=== PATIENT | male | born 1950 | race Caucasian/White ===

== ENCOUNTER → 2017-10-21 12:52 | Outpatient (CLI) | payer MEDICARE, SELFPAY ==
[2017-10-21 15:43] LABS: Prostate Specific Ag Screen 0.8 ng/mL (0.0-4.0)
== END ==
PROVIDERS: PCP Family Medicine; Visit Provider Urology
DX: Z12.5 Encounter for screening for malignant neoplasm of prostate (principal); N40.2 Nodular prostate without lower urinary tract symptoms
CPT/HCPCS: 36415; G0103

== ENCOUNTER → 2018-05-12 14:06 | Outpatient (CLI) | payer MEDICARE, SELFPAY ==
[2018-05-12 16:15] LABS: Prostate Specific Ag Screen 0.6 ng/mL (0.0-4.0)
== END ==
PROVIDERS: Visit Provider Urology
DX: Z12.5 Encounter for screening for malignant neoplasm of prostate (principal); N40.2 Nodular prostate without lower urinary tract symptoms
CPT/HCPCS: 36415; G0103

== ENCOUNTER → 2018-11-03 14:24 | Outpatient (CLI) | payer MEDICARE, SELFPAY ==
[2018-11-03 15:34] LABS: Prostate Specific Ag, Diagnost 0.59 ng/mL (0.0-4.0)
== END ==
PROVIDERS: Visit Provider Urology
DX: R97.20 Elevated prostate specific antigen [PSA] (principal)
CPT/HCPCS: 36415; 84153

== ENCOUNTER 2019-06-23 08:00 | Outpatient (RCR) | payer MEDICARE, SELFPAY ==
--- NOTE | 2019-05-11 12:09 | HMH.PTOPEV ---
PT Outpatient Evaluation Rehab PT Outpatient Evaluation Start: 05/11/19 11:33 Freq: Status: Active Protocol: Document 05/11/19 11:33 [email or web address] (Rec: 05/11/19 12:09 [email or web address] [id number]) Electronically Signed By Enrrique Hardy, PT 05/11/19 11:33 Outpatient Therapy Subjective History Subjective History Pt. is a 69 year old male who presents to outpatient PT for complaints of subacute L cervical/ shoulder pain of insidious onset 2 months ago. Pt. reports symptoms worsening with driving/lifting/sleeping/ cervical rotation and flexion to same side, L. Pt. denies having recent diagnostic imaging nor injections for current pathology. Pt. also denies numbness/tingling into LUE and HAs with current pathology. Current medications include Flexirol, Amlodopine, Lisinopril, Atorvastatin, Metformin, and Metoprolol. PMH includes 1 LUX(22 years ago), one balloon angioplasty, R wrist surgical reconstruction, L elbow surgical reconstruction, R ankle surgical reconstruction, HTN, type II diabetes, and hypercholesterolemia. Chief Complaint Pain,Stiff Symptom Type Ache,Sharp,Dull Symptoms Relieved By Rest/Positioning,Heat, Prescription Meds Symptoms Aggravated By Physical Activity,Twisting, Lifting Prior Functional Limitations None Current Functional Limitations Reaching,Lifting,Driving, Sleeping,Recreation Activity Symptom Description Constant but Variable Level of pain today (0-10) 2 Pain scale - at its best (0-10) 1 Pain scale - at its worst (0-10) 9 Cervical Eval Palpation Cervical Muscles L Cervical Paraspinal,L CT Junction,L Upper Trapezius Cervical/Thoracic Palpation Findings Spasm Posture Head/C-Spine Posture Sitting Position Flexed Head/C-Spine Posture Standing Position Flexed Flexibility Deficits Upper Trapezius Muscle Length (R) Severe Tightness,(L) Severe Tightness Levaetor Scapulae Muscle Length (R)
== END 2019-07-06 11:00 | disposition home or self-care (01) ==
LOC: PT 08:00
PROVIDERS: PCP Family Medicine; Visit Provider Family Medicine
DX: M54.2 Cervicalgia (principal); M62.838 Other muscle spasm
CPT/HCPCS: 97010; 97012; 97014; 97033; 97035; 97110; 97140; 97163; G0283

== ENCOUNTER → 2019-11-09 11:55 | Outpatient (CLI) | payer MEDICARE, SELFPAY ==
[2019-11-09 14:20] LABS: Prostate Specific Ag Screen 0.9 ng/mL (0.0-4.0)
== END ==
PROVIDERS: PCP Family Medicine; Visit Provider Urology
DX: Z12.5 Encounter for screening for malignant neoplasm of prostate (principal)
CPT/HCPCS: 36415; G0103

== ENCOUNTER → 2020-11-09 11:23 | Outpatient (CLI) | payer MEDICARE, SELFPAY ==
[2020-11-09 12:52] LABS: Prostate Specific Ag Screen 0.8 ng/ml (0.0-4.0)
== END ==
PROVIDERS: Visit Provider Urology
DX: Z12.5 Encounter for screening for malignant neoplasm of prostate (principal)
CPT/HCPCS: 36415; G0103

== ENCOUNTER → 2021-11-13 10:38 | Outpatient (CLI) | payer MEDICARE, SELFPAY ==
[2021-11-13 12:39] LABS: Prostate Specific Ag Screen 0.8 ng/ml (0.0-4.0)
== END ==
PROVIDERS: PCP Family Medicine; Visit Provider Urology
DX: Z12.5 Encounter for screening for malignant neoplasm of prostate (principal)
CPT/HCPCS: 36415; G0103

== ENCOUNTER 2022-10-22 06:25 | Day surgery (SDC) | payer MEDICARE, SELFPAY ==
[2022-10-17 09:30] VITALS: BMI 31.9
[2022-10-22] VITALS (8 sets, daily range): BP systolic 124–139; BP diastolic 59–69; PULSE 50–79; RESP 14–18; TEMP 36.6–36.7; O2SAT 92–98
[2022-10-22 11:08] LABS: POC Glucose,Bedside 230 (70-110)
== END 2022-10-22 08:27 | disposition home or self-care (01) ==
LOC: OR 06:30
PROVIDERS: PCP Family Medicine; Visit Provider Ophthalmology
DX: E11.36 Type 2 diabetes mellitus with diabetic cataract (principal); H25.9 Unspecified age-related cataract
CPT/HCPCS: 66982; 82962; V2632

== ENCOUNTER 2022-11-05 07:17 | Day surgery (SDC) | payer MEDICARE, SELFPAY ==
[2022-11-05] VITALS (9 sets, daily range): BP systolic 118–145; BP diastolic 61–68; PULSE 49–59; RESP 14–18; TEMP 36.2–36.7; O2SAT 91–96; BMI 31.9
[2022-11-05 07:48] LABS: POC Glucose,Bedside 220 (70-110)
== END 2022-11-05 09:04 | disposition home or self-care (01) ==
PROVIDERS: PCP Family Medicine; Visit Provider Ophthalmology
DX: H25.813 Combined forms of age-related cataract, bilateral (principal); E11.9 Type 2 diabetes mellitus without complications; Z79.899 Other long term (current) drug therapy
CPT/HCPCS: 66984; 82962; V2632

== ENCOUNTER 2024-04-16 09:25 | Outpatient (CLI) | payer MEDICARE, SELFPAY ==
--- NOTE | 2024-04-16 09:26 | FL_ITS ---
FINAL REPORT CLINICAL HISTORY: DYSPHAGIA FT: 1:10 78.18 MGY DAP 1087.64 FINDINGS: ESOPHAGRAM CLINICAL HISTORY: Dysphagia FINDINGS: There is no esophageal mucosal abnormality. There is a moderate-sized hiatal hernia. There is mild gastroesophageal reflux. A 13 mm barium tablet is briefly delayed at the hernia site but passes into the esophagus. IMPRESSION: Moderate-sized hiatal hernia with mild gastroesophageal reflux. FLUOROSCOPY TIME: 1 minute 10 second FLUORO DOSE: 78.1 a mGy Films reviewed and interpreted by Dr. Juarez Transcribed by POLINA Dooley. Reviewed, Interpreted and Dictated by Jose Juarez III, MD Transcribed by CRIS Dooley Authenticated and [facility]
[2024-04-16] MEDS: BARIUM SULFATE (E-Z-HD 340GM);135ML BOTTLE 135 ML PO (10:08)
[2024-04-16] MEDS: BARIUM SULFATE(LIQUID E-Z-PAQUE);355ML BOTTLE 355 ML PO (10:08)
[2024-04-16] MEDS: E-Z-GASII EFFERVESCENT GRANULES;1PK 1 EACH PO (10:08)
== END 2024-04-16 23:59 | disposition home or self-care (01) ==
LOC: RAD 09:26
PROVIDERS: PCP Family Medicine; Visit Provider Surgery
DX: R13.10 Dysphagia, unspecified (principal)
CPT/HCPCS: 74220

== ENCOUNTER 2024-04-27 06:18 | Day surgery (SDC) | payer MEDICARE, SELFPAY ==
[2024-04-23 13:23] VITALS: BMI 31.9
[2024-04-27] VITALS (7 sets, daily range): BP systolic 115–141; BP diastolic 59–70; PULSE 65–77; RESP 16–18; TEMP 36.2–36.3; O2SAT 91–98
[2024-04-27] MEDS: LACTATED RINGERS 1000ML 1,000 ML 25 ML IV (06:31)
[2024-04-27 06:52] LABS: POC Glucose,Bedside 134 (70-110)
--- NOTE | 2024-04-27 07:07 | P.PCN_ITS ---
Procedure: Date: 04/27/24 Patient Date of :: 1950 Procedure Performed:: Esophagogastroduodenoscopy with biopsy Indications:: Dysphagia Sliding hiatal hernia Note: The patient has recent complaints of dysphagia. Barium swallow confirms sliding hiatal hernia without evidence of stricture or mass. Performing Provider:: Mu Souza MD Referring Provider:: . Sedation:: Monitored anesthesia care Procedure:: After informed consent was obtained the patient was taken to the endoscopy suite. Sedation ensued after the patient was transferred to the left lateral decubitus position. Pulse, blood pressure, and oxygen saturation were monitored throughout the procedure. The endoscope was advanced beyond the duodenal bulb. Retroflexion within the gastric lumen was accomplished. The gastroscope was c arefully removed and the patient was transferred to recovery in stable condition. Please see findings and specimens below for detail. Findings:: Somewhat tortuous/dilated esophagus Faint/early Schatzki ring at gastroesophageal junction Gastroesophageal junction displaced to 32 cm secondary to hiatal hernia Moderate sliding hiatal hernia (somewhat poorly visualized secondary to lack of complete gastric distention) Specimens:: Antral biopsy Recommendations:: Continue proton pump inhibition Follow-up pathology Complications:: No immediate Estimated blood obtained (mL): 1 Colonoscopy Component Colonoscopy Component Was a colonoscopy performed during today's procedure?: No
--- NOTE | 2024-04-27 07:19 | EXP.ANES.CKL ---
[facility] Disclaimer: The information contained in this section may have been updated after the patient was seen, as this information can be updated by other users. Medical History Heart attack Arthritis Enlarged prostate Psoriasis History of gastroesophageal reflux (GERD) Diabetes mellitus, type 2 Allergies History of cataract History of heart attack Hypertension Hyperlipidemia Surgical History History of surgery HEART CATH - NO STENTS H/O wrist surgery RIGHT WRIST History of elbow surgery LEFT ELBOW History of ankle surgery RIGHT ANKLE Family History Brother Heart disease Mother Hypertension COPD (chronic obstructive pulmonary disease) Father COPD (chronic obstructive pulmonary disease) Other Cancer Social History Smoking Status: Former smoker alcohol intake: never substance use type: denies use and other current occupational status: retired Travel in the last 8 weeks: None housing: house caffeine: No [facility] Anesthesia Checklist Patient Identification Patient Identification: Arm Band Structural Data Admitted From: Home Planned Operative Procedure/s: EGD Consent for Planned Operative Procedure(s) Verified: Yes Verified Documents: Surgical Consent and History and Physical NPO Status Verified Time NPO: 00:00 Additional verifications Anesthesia Reactions: No Airway Assessment Mallampati Score:: Class II C-Spine Mobility Assessed: Yes TMJ Mobility Assessed: Yes Dentition: Edentulous Neurological Assessment Level of Consciousness: Awake, Alert and Appropriate Anesthesia Plan Anesthesia Risk discussed: Yes Anesthesia Plan: Verified ASA Class: III Anesthesia Type: MAC
--- NOTE | 2024-04-27 07:53 | EXP.ANES.I ---
[facility] Anesthesia Record Part I Anesthesia Record I Intake, IV Amount: 200 Hydration: Adequate Estimated blood loss (mL): 1 Urine output (mL): 0 Blood Products used (#): none Blood Pressure: 115/65 SaO2: 91 Pulse Rate: 77 Airway Patency: Patent Respiratory Rate: 16 Temperature: 97.2 F Patient is:: Awake (Talking) and Stable Stable to PACU at:: 07:50
== END 2024-04-27 08:15 | disposition home or self-care (01) ==
PROVIDERS: PCP Family Medicine; Visit Provider Surgery
PROC: 0DJ08ZZ Inspection of Upper Intestinal Tract, Via Natural or Artificial Opening Endoscopic (ICD-10-PCS; CPT 43235; principal; 2024-04-27 07:30)
DX: R13.10 Dysphagia, unspecified (principal); K21.9 Gastro-esophageal reflux disease without esophagitis; K44.9 Diaphragmatic hernia without obstruction or gangrene; K22.2 Esophageal obstruction; E11.8 Type 2 diabetes mellitus with unspecified complications
CPT/HCPCS: 43239; 82962; 88305; J7120

== ENCOUNTER 2024-12-02 13:05 | Outpatient (CLI) | payer MEDICARE, SELFPAY ==
--- NOTE | 2024-12-02 14:21 | CT_ITS ---
FINAL REPORT TECHNIQUE: Thin section axial images were obtained through the cervical spine without contrast. Multiplanar reconstruction images were obtained from the axial data. This study was performed with techniques to keep radiation doses as low as reasonably achievable, (ALARA). Individualized dose reduction techniques using automated exposure control or adjustment of mA and/or kV according to the patient's size were employed. CLINICAL HISTORY: CERVICAL SPINE PAIN COMPARISON: None FINDINGS: CT CERVICAL SPINE W/O CONTRAST There is no acute fracture or acute malalignment of the cervical spine. There is no evidence of unilateral or bilateral facet lock. The craniocervical junction is intact. There is multilevel degenerative disc disease most pronounced at C5-6 and C6-7. There is neuroforaminal narrowing bilaterally. Vertebral body height is preserved. No acute paraspinal abnormality is identified. IMPRESSION: No acute osseous abnormality of the cervical spine. Degenerative disc disease most pronounced at C5-6 and C6-7. Consider MRI. Reviewed, Interpreted and Dictated by Rema Cantu MD Transcribed by Palma Perez Authenticated and [facility]
== END 2024-12-02 23:59 | disposition home or self-care (01) ==
LOC: RAD 13:06
PROVIDERS: PCP Family Medicine; Visit Provider Nurse Practitioner
DX: M54.2 Cervicalgia (principal)
CPT/HCPCS: 72125

== ENCOUNTER 2025-01-05 08:00 | Outpatient (RCR) | payer MEDICARE, SELFPAY | END 2025-01-05 23:59 | disposition home or self-care (01) | LOC: PT 08:00 | PROVIDERS: Visit Provider Family Medicine | DX: M46.92 Unspecified inflammatory spondylopathy, cervical region (principal) | CPT/HCPCS: 20560; 97110; 97112; 97140; 97163; 97164 ==

== ENCOUNTER 2025-02-01 08:00 | Outpatient (RCR) | payer MEDICARE, SELFPAY | END 2025-02-08 11:08 | disposition home or self-care (01) | LOC: PT 08:00 | PROVIDERS: Visit Provider Family Medicine | DX: M46.92 Unspecified inflammatory spondylopathy, cervical region (principal) | CPT/HCPCS: 97110; 97112 ==

== ENCOUNTER 2025-03-25 08:57 | Outpatient (CLI) | payer MEDICARE, SELFPAY ==
--- NOTE | 2025-03-25 09:01 | MR_ITS ---
FINAL REPORT CLINICAL HISTORY: *HARDWARE*CERVICAL SPINE PAIN/ARTHRITIS neck pain tingling fingers in hands left sided head and neck pain pain when turning neck FINDINGS: Multi planar MR imaging was obtained of the cervical spine. There is abnormal decreased signal throughout the cervical discs. The vertebrae are of normal height. There is moderate loss of height at C5-6 and C6-7. There is no malalignment. The cervical cord demonstrates normal signal and configuration. C2-C3: There is no evidence of significant disc bulge or protrusion. There is no significant facet hypertrophy. C3-C4: There is no evidence of significant disc bulge or protrusion. There is no significant facet hypertrophy. C4-C5: Mild diffuse disc bulge with endplate hypertrophy and moderate bilateral neuroforaminal narrowing. C5-C6: Moderate diffuse disc bulge with endplate hypertrophy and moderate to high-grade bilateral neuroforaminal narrowing. C6-C7: Moderate diffuse disc bulge and endplate hypertrophy, eccentric to the right. Moderate to high-grade right and mild left neuroforaminal narrowing. C7-T1: There is no evidence of significant disc bulge or protrusion. There is no significant facet hypertrophy. IMPRESSION: Neuroforaminal compromise, most evident bilaterally at C5-6 and on the right at C6-7. Reviewed, Interpreted and Dictated by Jose Mederos MD Transcribed by Julia Benítez Authenticated and [facility]
--- OUTSIDE RECORDS SUMMARY | 2025-03-25 09:01 | XMS_ITS | Data Portability ---
Author Organization [facility] & [facility] ADMIN Address [address] [place] [id number] Assessment No assessment recorded. Plan of Treatment Reminders Order Date Submit Date Provider Last Modified By Organization Details Last Modified Time Details Appointments OV EST 15 2024 09:45A Darrian Patrick MD Not available Not available Not available Lab CBC 2023 [facility] (Lab Registration) , [address] , [place], [address], 12/26/2023 15:28:13 CMP, serum or plasma 2023 [facility] (Lab Registration) , [address] [place], [address], 12/26/2023 12:41:52 HbA1c (hemoglob in A1c), blood 2023 [facility] (Lab Registration) , [address] [place], [address], 12/26/2023 12:20:02 lipid panel, serum 2023 [facility] (Lab Registration) , [address] [place], [address], 12/26/2023 12:41:54 Referral None recorded. Procedures None recorded. Surgeries None recorded. Imaging electroca rdiogram 2023 [facility], [address], [place], [address], 12/26/2023 10:27:45 US, echocardi ogram, transthor acic, complete, w/ color flow 2023 024 [facility] (Lab Registration) , [address] [place], [address], 01/16/2024 13:23:00 Medication Orders metoprolo l succinate ER 25 mg tablet,ex tended release 24 hr 2023 024 FRANNYLiquidM [facility], [address] [place] [address], [id number], 08/03/2024 11:02:26 nitroglyc adriel 0.4 mg sublingua l tablet 2023 024 GIRDWOOD [employer] [facility], [address] [place] [address], [id number], 12/27/2023 09:18:18 Patient TargetsNo targets recorded. Patient InstructionsNo instructions recorded. Reason for Referral None Reported. Results Created Date Observation Date Name Description Value Unit Range Abnormal Flag Note LastModifiedBy Organization Detail LastModifiedTime 12/26/19 24 12/26/2023 CBC AUTO W DIFF WBC 5.0 10 4.5-11 .5 Not Available [facility] (Lab Registration) [address] [place], [address], 12/26/2023 11:12:21 12/26/19 24 12/26/2023 CBC AUTO W DIFF RBC 4.89 10 4.25-5 .57 Not Available [facility] (Lab Registration) [address] [place], [address], 12/26/2023 11:12:21 12/26/19 24 12/26/2023 CBC AUTO W DIFF HGB 15.4 g/dL 13.5-1 7.2 Not Available [facility] (Lab Registration) [address] [place], [address], 12/26/2023 11:12:21 12/26/19 24 12/26/2023 CBC AUTO W DIFF HCT 44.7 % 42.0-5 2.0 Not Available [facility] (Lab Registration) [address] [place], [address], 12/26/2023 11:12:21 12/26/19 24 12/26/2023 CBC AUTO W DIFF MCV 91.4 fL 80-95 Not Available [facility] (Lab Registration) [address] [place], [address], 12/26/2023 11:12:21 12/26/19 24 12/26/2023 CBC AUTO W DIFF MCH 31.5 pg 27.0-3 4.0 Not Available [facility] (Lab Registration) [address] [place], [address], 12/26/2023 11:12:21 12/26/19 24 12/26/2023 CBC AUTO W DIFF MCHC 34.5 g/dL 32.0-3 6.0 Not Available [facility] (Lab Registration) [address] [place], [address], 12/26/2023 11:12:21 12/26/19 24 12/26/2023 CBC AUTO W DIFF platelet count 135 10 150-45 0 low Not Available [facility] (Lab Registration) [address] [place], [address], 12/26/2023 11:12:21 12/26/19 24 12/26/2023 CBC AUTO W DIFF RDW 12.4 % 12.3-1 5.1 Not Available [facility] (Lab Registration) [address] [place], [address], 12/26/2023 11:12:21 12/26/19 24 12/26/2023 CBC AUTO W DIFF MPV 9.4 fL 7.4-10 .4 Not Available [facility] (Lab Registration) [address] [place], [address], 12/26/2023 11:12:21 12/26/19 24 12/26/2023 CBC AUTO W DIFF granulocyte% 55.4 % 40-75 Not Available [facility] (Lab Registration) [address] [place], [address], 12/26/2023 11:12:21 12/26/19 24 12/26/2023 CBC AUTO W DIFF lymphocyte% 31.7 % 15-57 Not Available [facility] (Lab Registration) [address] [place], [address], 12/26/2023 11:12:21 12/26/19 24 12/26/2023 CBC AUTO W DIFF monocyte% 8.3 % 4.0-12 .0 Not Available [facility] (Lab Registration) [address] [place], [address], 12/26/2023 11:12:21 12/26/19 24 12/26/2023 CBC AUTO W DIFF eosinophil% 4.0 % 0.0-4. 0 Not Available [facility] (Lab Registration) [address] [place], [address], 12/26/2023 11:12:21 12/26/19 24 12/26/2023 CBC AUTO W DIFF basophil% 0.6 % 0.0-1. 0 Not Available [facility] (Lab Registration) [address] [place], [address], 12/26/2023 11:12:21 12/26/19 24 12/26/2023 CBC AUTO W DIFF immature granulocytes % 0.0 % 0.0-0. 8 Not Available [facility] (Lab Registration) [address] [place], [address], 12/26/2023 11:12:21 12/26/19 24 12/26/2023 CBC AUTO W DIFF granulocyte# 2.74 10 Not Available [facility] (Lab Registration) [address] [place], [address], 12/26/2023 11:12:21 12/26/19 24 12/26/2023 CBC AUTO W DIFF lymphocyte# 1.57 10 Not Available [facility] (Lab Registration) [address] [place], [address], 12/26/2023 11:12:21 12/26/19 24 12/26/2023 CBC AUTO W DIFF monocyte# 0.41 10 Not Available [facility] (Lab Registration) [address] [place], [address], 12/26/2023 11:12:21 12/26/19 24 12/26/2023 CBC AUTO W DIFF eosinophil# 0.20 10 Not Available [facility] (Lab Registration) [address] [place], [address], 12/26/2023 11:12:21 12/26/19 24 12/26/2023 CBC AUTO W DIFF basophil# 0.03 10 Not Available [facility] (Lab Registration) [address] [place], [address], 12/26/2023 11:12:21 12/26/19 24 12/26/2023 CBC AUTO W DIFF immature granulocytes # 0.00 10 Not Available [facility] (Lab Registration) [address] [place], [address], 12/26/2023 11:12:21 12/26/19 24 12/26/2023 CBC AUTO W DIFF manual differential NO Not Available [facility] (Lab Registration) [address] [place], [address], 12/26/2023 11:12:21 12/26/19 24 12/26/2023 CBC AUTO W DIFF note Unles s other javier noted testi ng perfo rmed at: [facility] [address] [place] [address] [phone] Damon marcial MD CLIA: [id number] Not Available [facility] (Lab Registration) [address] [place], [address], 12/26/2023 11:12:21 12/26/19 24 12/26/2023 HEMOG LOBIN A1C glycosylated hemoglobin A1C 6.8 % 4.5-6. 2 high Not Available [facility] (Lab Registration) [address] [place], [address], 12/26/2023 12:20:02 12/26/19 24 12/26/2023 HEMOG LOBIN A1C estimated average glucose 148 mg/dL 82-131 high Not Available [facility] (Lab Registration) [address] [place], [address], 12/26/2023 12:20:02 12/26/19 24 12/26/2023 HEMOG LOBIN A1C note Unles s other javier noted testi ng perfo rmed at: [facility] 9 [facility] [place] [address] [phone] Damon marcial MD CLIA: [id number] Not Available [facility] (Lab Registration) [address] [place], [address], 12/26/2023 12:20:02 12/26/19 24 12/26/2023 COMP METAB OLIC PANEL sodium 139 mmol/ L 136-14 5 Not Available [facility] (Lab Registration) [address] [place], [address], 12/26/2023 12:41:52 12/26/19 24 12/26/2023 COMP METAB OLIC PANEL potassium 3.9 mmol/ L 3.5-5. 1 Not Available [facility] (Lab Registration) [address] [place], [address], 12/26/2023 12:41:52 12/26/19 24 12/26/2023 COMP METAB OLIC PANEL chloride 102 mmol/ L 98-107 Not Available [facility] (Lab Registration) [address] [place], [address], 12/26/2023 12:41:52 12/26/19 24 12/26/2023 COMP METAB OLIC PANEL carbon dioxide 27 mmol/ L 21-32 Not Available [facility] (Lab Registration) [address], [place], [address], 12/26/2023 12:41:52 12/26/19 24 12/26/2023 COMP METAB OLIC PANEL anion gap 10.0 Not Available [facility] (Lab Registration) [address] [place], [address], 12/26/2023 12:41:52 12/26/19 24 12/26/2023 COMP METAB OLIC PANEL glucose 141 mg/dL 70-110 high Not Available [facility] (Lab Registration) [address] [place], [address], 12/26/2023 12:41:52 12/26/19 24 12/26/2023 COMP METAB OLIC PANEL blood urea nitrogen 19 mg/dL 7-18 high Not Available [facility] (Lab Registration) [address], [place], [address], 12/26/2023 12:41:52 12/26/19 24 12/26/2023 COMP METAB OLIC PANEL creatinine 1.2 mg/dL 0.8-1. 3 Not Available [facility] (Lab Registration) [address] [place], [address], 12/26/2023 12:41:52 12/26/19 24 12/26/2023 COMP METAB OLIC PANEL BUN/creatini ne ratio 15.8 ratio 9-21 Not Available [facility] (Lab Registration) [address] [place], [address], 12/26/2023 12:41:52 12/26/19 24 12/26/2023 COMP METAB OLIC PANEL estimated glom filtration rate 63 mL/mi n >60- Not Available [facility] (Lab Registration) [address] [place], [address], 12/26/2023 12:41:52 12/26/19 24 12/26/2023 COMP METAB OLIC PANEL total protein 7.5 g/dL 6.4-8. 2 Not Available [facility] (Lab Registration) [address] [place], [address], 12/26/2023 12:41:52 12/26/19 24 12/26/2023 COMP METAB OLIC PANEL albumin 4.1 g/dL 3.4-5. 0 Not Available [facility] (Lab Registration) [address] [place], [address], 12/26/2023 12:41:52 12/26/19 24 12/26/2023 COMP METAB OLIC PANEL calcium 10.0 mg/dL 8.5-10 .1 Not Available [facility] (Lab Registration) [address] [place], [address], 12/26/2023 12:41:52 12/26/19 24 12/26/2023 COMP METAB OLIC PANEL corrected calcium 9.9 mg/dL 8.5-10 .1 Not Available [facility] (Lab Registration) [address] [place], [address], 12/26/2023 12:41:52 12/26/19 24 12/26/2023 COMP METAB OLIC PANEL bilirubin total 0.5 mg/dL 0.4-1. 5 Not Available [facility] (Lab Registration) [address] [place], [address], 12/26/2023 12:41:52 12/26/19 24 12/26/2023 COMP METAB OLIC PANEL AST (SGOT) 21 U/L 15-37 Not Available [facility] (Lab Registration) [address] [place], [address], 12/26/2023 12:41:52 12/26/19 24 12/26/2023 COMP METAB OLIC PANEL ALT (SGPT) 37 U/L 12-78 Not Available [facility] (Lab Registration) [address] [place], [address], 12/26/2023 12:41:52 12/26/19 24 12/26/2023 COMP METAB OLIC PANEL alk phosphatase 97 U/L Not Available [facility] (Lab Registration) [address], [place], [address], 12/26/2023 12:41:52 12/26/19 24 12/26/2023 COMP METAB OLIC PANEL note Unles s other javier noted testi ng perfo rmed at: [facility] [place] [address] [phone] Damon marcial MD CLIA: [id number] Not Available [facility] (Lab Registration) [address], [place], [address], 12/26/2023 12:41:52 12/26/19 24 12/26/2023 LIPID PANEL triglyceride 129 mg/dL 20-200 The Natio nal [employer]ca tion Progr am (NCEP ) has set the follo wing guide lines for Fasti ng Trigl yceri agustin: QUEENIE L: <150 mg/dL BORDE RLINE HIGH: 150 - 199 mg/dL HIGH: 200 - 499 mg/dL VERY HIGH: > or =500 mg/dL Not Available [facility] (Lab Registration) [address], [place], [address], 12/26/2023 12:41:54 12/26/19 24 12/26/2023 LIPID PANEL cholesterol 128 mg/dL 0-200 The Natio nal [employer]ila [employer] l [employer]ca tion Progr am (NCEP ) has set the follo wing guide lines for Fasti ng Zoila stero l: OKSANA ABLE: <200 mg/dL BORDE RLINE HIGH: 200 - 239 mg/dL HIGH: > or =240 mg/dL Not Available [facility] (Lab Registration) [address] [place], [address], 12/26/2023 12:41:54 12/26/19 24 12/26/2023 LIPID PANEL HDL cholesterol 46 mg/dL 60- low The Natio nal [employer]ila [employer] l [employer]ca tion Progr am (DCEP ) has set the follo wing guide lines for Fasti ng HDL Zoila stero l: LOW HDL: <40 mg/dL QUEENIE L: 40 - 60 mg/dL OKSANA ABLE: >60 mg/dL Not Available [facility] (Lab Registration) [address], [place], [address], 12/26/2023 12:41:54 12/26/19 24 12/26/2023 LIPID PANEL LDL calculated 56 mg/dL 100- low The Natio nal [employer]ca tion Progr am (NCEP ) has set the follo wing guide lines for Fasti ng LDL Zoila stero l: OPTIM AL: < 100 mg/dL LOW RISK: 100 - 129 mg/dL BORDE RLINE HIGH: 130 - 159 mg/dL HIGH: 160 - 189 mg/dL VERY HIGH: > or = 190 mg/dL Not Available [facility] (Lab Registration) [address], [place], [address], 12/26/2023 12:41:54 12/26/19 24 12/26/2023 LIPID PANEL chol/HDL ratio 3 ratio -5 Not Available [facility] (Lab Registration) [address], [place], [address], 12/26/2023 12:41:54 12/26/19 24 12/26/2023 LIPID PANEL note Unles s other javier noted testi ng perfo rmed at: [facility] [address] [place] [address] [phone] Damon marcial MD CLIA: [id number] Not Available [facility] (Lab Registration) [address] [place], [address], 12/26/2023 12:41:54 12/26/19 24 12/26/2023 CBC AUTO NO DIFF (HEMO GRAM) WBC 5.0 10 4.5-11 .5 Not Available [facility] (Lab Registration) [address] [place], [address], 12/26/2023 15:28:13 12/26/19 24 12/26/2023 CBC AUTO NO DIFF (HEMO GRAM) RBC 4.89 10 4.25-5 .57 Not Available [facility] (Lab Registration) [address] [place], [address], 12/26/2023 15:28:13 12/26/19 24 12/26/2023 CBC AUTO NO DIFF (HEMO GRAM) HGB 15.4 g/dL 13.5-1 7.2 Not Available [facility] (Lab Registration) [address] [place], [address], 12/26/2023 15:28:13 12/26/19 24 12/26/2023 CBC AUTO NO DIFF (HEMO GRAM) HCT 44.7 % 42.0-5 2.0 Not Available [facility] (Lab Registration) [address] [place], [address], 12/26/2023 15:28:13 12/26/19 24 12/26/2023 CBC AUTO NO DIFF (HEMO GRAM) MCV 91.4 fL 80-95 Not Available [facility] (Lab Registration) [address] [place], [address], 12/26/2023 15:28:13 12/26/19 24 12/26/2023 CBC AUTO NO DIFF (HEMO GRAM) MCH 31.5 pg 27.0-3 4.0 Not Available [facility] (Lab Registration) [address] [place], [address], 12/26/2023 15:28:13 12/26/19 24 12/26/2023 CBC AUTO NO DIFF (HEMO GRAM) MCHC 34.5 g/dL 32.0-3 6.0 Not Available [facility] (Lab Registration) [address] [place], [address], 12/26/2023 15:28:13 12/26/19 24 12/26/2023 CBC AUTO NO DIFF (HEMO GRAM) platelet count 135 10 150-45 0 low Not Available [facility] (Lab Registration) [address], [place], [address], 12/26/2023 15:28:13 12/26/19 24 12/26/2023 CBC AUTO NO DIFF (HEMO GRAM) RDW 12.4 % 12.3-1 5.1 Not Available [facility] (Lab Registration) [address], [place], [address], 12/26/2023 15:28:13 12/26/19 24 12/26/2023 CBC AUTO NO DIFF (HEMO GRAM) MPV 9.4 fL 7.4-10 .4 Not Available [facility] (Lab Registration) [address] [place], [address], 12/26/2023 15:28:13 12/26/19 24 12/26/2023 CBC AUTO NO DIFF (HEMO GRAM) note Unles s other javier noted testi ng perfo rmed at: [facility] [address] [place] [address] [phone] Damon marcial MD CLIA: [id number] Not Available [facility] (Lab Registration) [address] [place], [address], 12/26/2023 15:28:13 12/26/19 24 12/26/2023 elect rocar diogr am No observ ation record ed. [facility] [address], [place], [address], 01/27/2024 09:50:19 12/26/19 24 12/26/2023 elect rocar diogr am No observ ation record ed. [facility] [address], [place], [address], 12/26/2023 10:27:46 01/06/20 24 01/06/2024 US, echoc ardio gram, trans thora cic [facility] [address] [place] [address] Phone: Fax: Name: ANNE FARRELL Exam Date: 024 : [birth year] Age 73 years Gender : M Access ion: [id number] Physic eloise: MARGOTH MARTINEZ [place]ili [place]: [facility] [place] HSV: Outpat ient Exam: ECHOCA RDIOGR AM Locati on:[facility] Patien t Name:ANNE COLBY Interp reting Physic eloise:JD SHERMAN MD MRN:[id number] :[id number] Gender :M Age:73 Date of Servic e:Jan 05, 2024 Height :66.9 in in Weight :209 lb lb BSA:2. 12 m2 Patien t Status : Outpat ient Study Qualit y:Tech nicall y fair. Echoca rdiogr am Report Echoca rdiogr am was perfor med [facility] to the [employer] an Soci[employer] y of Echoca rdiogr aphy protoc ols for a comple te study using 2D/M-M ode, spectr al and color flow dopple r modali ties in obtain ing imagin g, hemody namics , measur ements , and calcul ations . Conclu sions: 1. Normal LV size. 2. Normal left ventri cular dimens ion. 3. Normal left ventri cular systol ic functi on. 4. Estima ellie LV ejecti on fracti on 55-60% . 5. There is border line concen tric left ventri stan hypert rophy. 6. Mild mitral valve regurg itatio n. Findin gs: Left Ventri stan:No rmal LV size. Normal left ventri cular dimens ion. Normal left ventri cular systol ic functi on. There is border line concen tric left ventri stan hypert rophy. Normal global wall motion . No region al wall motion abnorm alitie s. Estima ellie LV ejecti on fracti on 55-60% . Right Ventri stan:No rmal right ventri cular size and functi on. Left Atrium :Mild left atrial enlarg ement. Right Atrium :Queenie l right atrial size. Border line right atrial enlarg ement. Mitral Valve: Normal mitral valve struct ure and functi on. Mild mitral valve regurg itatio n. Tricus pid Valve: Normal tricus pid valve struct ure and functi on. Aortic Valve: Normal aortic valve struct ure. No aortic valve stenos is. No aortic valve regurg itatio n. Pulmon ic Valve: The pulmon ic valve is poorly seen. No pulmon ic valve regurg itatio n. Perica rdium: No perica rdial effusi on. Normal perica rdium. Electr onical ly signed MARGOTH SHERMAN MD 4 7:37 AM Legall y authen ticate d by HENRY Dia MD 01-05 08:00: 06 Study Data 2D Measur ements RVIDd: 2.83 (1.9-2 .6) cm LA Volume :95.48 (18-58 ) ml LA Volume Index: 45.13 (16-28 ) ml/m2 LVOT Diam:1 .92 (1.8-2 .4) cm M-MODE Measur ements Aortic Root:3 .18 (2.0-3 .7) cm LA/AR Ratio: 1.34 Mitral Valve Peak E:0.75 (0.6-1 .3) m/s Peak A:0.91 (<=.7) m/s E/A Ratio: 0.83 (.75-1 .5) PHT:10 7.45 ms MVA by PHT:2. 05 (4-6) cm2 DS:202 .18 cm/s2 DT:370 .53 (<=200 ) ms Tricus pid Valve TR Peak Erickson:2. 16 m/s TR Peak Grad:1 8.77 mmHg RAP:10 (5-10) mmHg RVSP:2 8.77 (<=30) mmHg Aortic Valve Peak:1 .84 (<=2.5 ) m/s Peak Grad:1 3.55 (<=16) mmHg Mean:1 .17 m/s Mean Grad:6 .23 (<=5) mmHg AV VTI:41 .91 cm ILDEFONSO(ve l):1.8 4 (3-5) cm2 LVOT PV:1.1 7 (0.7-1 .1) m/s LVOT P.4 6 mmHg Pulmon ic Valve Peak Erickson:1. 24 (0.6-0 .9) m/s Peak Grad:6 .1 (<=3) mmHg Report for ANNE FARRELL [id number] on 4 Dictat ed By: MARGOTH MARTINEZ Transc ribed By: ELIE PEOPLES Transc ribed On: 7:58 AM Electr onical ly signed by: MARGOTH MARTINEZ Thank you for referr ing ANNE FARRELL to [facility]. Legall y authen ticate d by HENRY Dia MD 01-05 08:00: 06 CC'ed Logic: Orderi ng Provid er: HENRY Dia Attend ing Provid er: HENRY Dia Referr ing Provid er: HENRY Dia Admitt ing Provid er: HENRY Dia [facility]) [address] [place], [address], 02/18/2024 13:17:12 01/06/20 24 01/05/2024 , [facility] ardio joan [facility] [address] [facility] [address] Phone: Fax: Name: ANNE FARRELL Exam Date: : [birth year] Age 73 years Gender : M Access ion: [id number] Physic eloise: MARGOTH MARTINEZ Facili ty: [facility] Facili ty HSV: Outpat ient Exam: ECHOCA RDIOGR AM Locati on:[facility] Patien t Name:ANNE COLBY Interp reting Physic eloise:JD SHERMAN MD MRN:[id number] :Khloe richardson 1949 Gender :M Age:73 Date of Servic e:Jan 05, 2024 Height :66.9 in in Weight :209 lb lb BSA:2. 12 m2 Patien t Status : Outpat ient Study Qualit y:Tech nicall y fair. Echoca rdiogr am Report Echoca rdiogr am was perfor med confor yong to the [place] an Societ y of Echoca rdiogr aphy protoc ols for a comple te study using 2D/M-M ode, spectr al and color flow dopple r modali ties in obtain ing imagin g, hemody namics , measur ements , and calcul ations . Conclu sions: 1. Normal LV size. 2. Normal left ventri cular dimens ion. 3. Normal left ventri cular systol ic functi on. 4. Estima ellie LV ejecti on fracti on 55-60% . 5. There is border line concen tric left ventri stan hypert rophy. 6. Mild mitral valve regurg itatio n. Findin gs: Left Ventri stan:No rmal LV size. Normal left ventri cular dimens ion. Normal left ventri cular systol ic functi on. There is border line concen tric left ventri stan hypert rophy. Normal global wall motion . No region al wall motion abnorm alitie s. Estima ellie LV ejecti on fracti on 55-60% . Right Ventri stan:No rmal right ventri cular size and functi on. Left Atrium :Mild left atrial enlarg ement. Right Atrium :Queenie l right atrial size. Border line right atrial enlarg ement. Mitral Valve: Normal mitral valve struct ure and functi on. Mild mitral valve regurg itatio n. Tricus pid Valve: Normal tricus pid valve struct ure and functi on. Aortic Valve: Normal aortic valve struct ure. No aortic valve stenos is. No aortic valve regurg itatio n. Pulmon ic Valve: The pulmon ic valve is poorly seen. No pulmon ic valve regurg itatio n. Perica rdium: No perica rdial effusi on. Normal perica rdium. Electr onical ly signed MARGOTH SHERMAN MD 4 7:37 AM Legall y authen ticate d by HENRY Dia MD 2024-0 01-05 08:00: 06 Study Data 2D Measur ements RVIDd: 2.83 (1.9-2 .6) cm LA Volume :95.48 (18-58 ) ml LA Volume Index: 45.13 (16-28 ) ml/m2 LVOT Diam:1 .92 (1.8-2 .4) cm M-MODE Measur ements Aortic Root:3 .18 (2.0-3 .7) cm LA/AR Ratio: 1.34 Mitral Valve Peak E:0.75 (0.6-1 .3) m/s Peak A:0.91 (<=.7) m/s E/A Ratio: 0.83 (.75-1 .5) PHT:10 7.45 ms MVA by PHT:2. 05 (4-6) cm2 DS:202 .18 cm/s2 DT:370 .53 (<=200 ) ms Tricus pid Valve TR Peak Erickson:2. 16 m/s TR Peak Grad:1 8.77 mmHg RAP:10 (5-10) mmHg RVSP:2 8.77 (<=30) mmHg Aortic Valve Peak:1 .84 (<=2.5 ) m/s Peak Grad:1 3.55 (<=16) mmHg Mean:1 .17 m/s Mean Grad:6 .23 (<=5) mmHg AV VTI:41 .91 cm ILDEFONSO(ve l):1.8 4 (3-5) cm2 LVOT PV:1.1 7 (0.7-1 .1) m/s LVOT P.4 6 mmHg Pulmon ic Valve Peak Erickson:1. 24 (0.6-0 .9) m/s Peak Grad:6 .1 (<=3) mmHg Report for ANNE FARRELL [id number] on 4 Dictat ed By: MARGOTH MARTINEZ Transc ribed By: ELIE PEOPLES Transc ribed On: 7:58 AM Electr onical ly signed by: MARGOTH MARTINEZ Thank you for referr ANNE Linton to [facility] al. Legall y authen ticate d by HENRY Dia MD 0 01-05 08:00: 06 CC'ed Logic: Orderi ng Provid er: HENRY Dia CC Provid er: AMARI ORELLANA Attend ing Provid er: HENRY Dia Referr ing Provid er: HENRY Dia Admitt ing Provid er: HENRY Dia [facility] (Radiology) [address] [place] [address] , [place], [address], 02/18/2024 13:17:11 Result Notes None recorded. Medical Equipment None Reported. Allergies No known drug allergies Medications Name Sig Start Date Stop Date Status Note LastModified by Organization Details LastModified Time atorvastati n 40 mg tablet 12/25 completed Not Available Not Available Not Available metformin 500 mg tablet 12/25 completed Not Available Not Available Not Available atorvastati n 80 mg tablet TAKE 1 TABLET 1 TIME EACH DAY active Not Available Not Available No t Available tizanidine 2 mg tablet TAKE 1 TABLET EVERY 6 HOURS FOR MUSCLE SPASM IN NECK 07/20 completed Not Available Not Available Not Available metoprolol succinate ER 50 mg tablet,exte nded release 24 hr TAKE 1/2 TABLET 1 TIME EACH DAY 01/18 completed Not Available Not Available Not Available glipizide ER 10 mg tablet, extended release 24 hr TAKE 1 TABLET 1 TIME EACH DAY, 30 MINUTES BEFORE BREAKFAST active Not Available Not Available No t Available lisinopril 20 mg tablet 12/25 completed Not Available Not Available Not Available glipizide 10 mg tablet TAKE 1 TABLET 30 MINUTES BEFORE BREAKFAST 07/20 completed Not Available Not Available Not Available amlodipine 5 mg tablet TAKE 1 TABLET 1 TIME EACH DAY active Not Available Not Available No t Available omeprazole 40 mg capsule,del ayed release TAKE 1 CAPSULE 1 TIME EACH DAY active Not Available Not Available No t Available prednisolon e acetate 1 % eye drops,suspe nsion PLACE 1 DROP IN THE AFFECTED EYE 4 TIMES EACH DAY FOR SEVERAL DAYS 07/20 completed Not Available Not Available Not Available metformin 1,000 mg tablet TAKE 1 TABLET 2 TIMES EACH DAY WITH FOOD active Not Available Not Available No t Available lisinopril 10 mg tablet TAKE 1 TABLET 1 TIME EACH DAY active Not Available Not Available No t Available nitroglycer in 0.4 mg sublingual tablet DISSOLVE 1 TABLET UNDER THE TONGUE EVERY 5 MINUTES NEEDED FOR CHEST PAIN. IF 3 TABLETS ARE NEEDED, GO TO EMERGENCY ROOM. active Not Available Not Available No t Available metoprolol succinate ER 25 mg tablet,exte nded release 24 hr TAKE 1 TABLET 1 TIME EACH DAY active Not Available Not Available No t Available levocetiriz ine 5 mg tablet TAKE 1 TABLET 1 TIME EACH DAY IN THE EVENING active Not Available Not Available No t Available aspirin 80 mg tablet Take 1 tablet every day by oral route. active Not Available Not Available No t Available Vitals Date Recorded Body weight Body mass index (BMI) Body height Oxygen saturation Oxygen saturation in Arterial blood by Pulse oximetry Heart rate Systolic blood pressure Diastolic blood pressure Provider Name and Address Organization Details Last Updated DateTime 4 65589.1 4 g 32 kg/m2 171.45 cm 97 % 97 % 70 /min 128 mm[Hg] 73 mm[Hg] [facility] [place] [facility] [place] 4 09:43:57 Date Recorded Body height Body mass index (BMI) Body weight Oxygen saturation Oxygen saturation in Arterial blood by Pulse oximetry Heart rate Systolic blood pressure Diastolic blood pressure Provider Name and Address Organization Details Last Updated DateTime 4 171.45 cm 32.2 kg/m2 12595.3 7 g 94 % 94 % 55 /min 132 mm[Hg] 68 mm[Hg] [facility] [place] [facility] [place] 4 10:09:54 Date Recorded Body height Body mass index (BMI) Body weight Oxygen saturation Oxygen saturation in Arterial blood by Pulse oximetry Heart rate Systolic blood pressure Diastolic blood pressure Provider Name and Address Organization Details Last Updated DateTime 4 171.45 cm 32.2 kg/m2 14990.0 1 g 94 % 94 % 51 /min 123 mm[Hg] 57 mm[Hg] Siobhan Vega [place] - [facility] - [place] & [place] 13:37:11 Social History None recorded. Functional Status Question Answer Note LastModified by Organizat ion Details LastModified Time What is your level of alcohol consumption? Occasional lsidwell Information not available 12/26/2023 Mental Status None recorded. Family History Nothing Reported Notes:Brother- heart disease Sister- heart disease Medical History No medical history recorded. Past Encounters Encounter ID Performer Location Encounter Start Date Encounter Closed Date Diagnosis/Indication Diagnosis SNOMED-CT Code Diagnosis ICD10 Code Diagnosis Note [id number] Michael Patrick MD [address] [place] [address] 12/26/2023 09:32:24 12/26/2023 10:09:12 History of percutaneous transluminal coronary angioplasty 597339933 Z98.61 Balloon angioplast y for heart attack as per the patient done in 1995 at [facility]. No records available to us no stenting as per the patient. He has been on medical treatment with statin aspirin and beta lucho. We will also add sublingual nitroglyce rin p.r.n. follow up echocardio gram. Essential hypertension 98455983 I10 Controlled continue medication . Dyslipidemia 134400061 E 78.5 On statin follow up fasting lipid profile. Type 2 sarika betes mellitus without complication 155910065 E11.9 On metformin and glipizide follow up hemoglobin A1c. Ex-smoker 8724406 Z87.89 1 Quit smoking more than 20 years ago. Obesity 007777463 E66.9 BMI 32. Recommend weight loss and sleep apnea evaluation . [id number] Michael Patrick MD [address] [place] [address] 01/19/2024 10:06:42 01/19/2024 10:28:47 History of percutaneous transluminal coronary angioplasty 853593566 Z98.61 Balloon angioplast y for heart attack as per the patient done in 1995 at [facility]. No records available to us, no stenting as per the patient. He has been on medical treatment with statin aspirin and beta lucho. Patient came today to follow up on the results of the echocardio gram and blood work results were discussed with the patient. No indication for further cardiac workup at this time. Essential hypertension 26507015 I10 Controlled continue medication . Dyslipidemia 842534151 E 78.5 On statin follow up fasting lipid profile. Type 2 sarika betes mellitus without complication 124133928 E11.9 On metformin and glipizide follow up hemoglobin A1c. Ex-smoker 8582351 Z87.89 1 Quit smoking more than 20 years ago. Obesity 455619980 E66.9 BMI 32. Recommend weight loss and sleep apnea evaluation . [id number] Michael Patrick MD [address] [place] [address] 07/20/2024 13:19:17 07/20/2024 13:48:07 History of percutaneous transluminal coronary angioplasty 750628813 Z98.61 Balloon angioplast y for heart attack as per the patient done in 1995 at [facility]. No records available to us, no stenting as per the patient. He has been on medical treatment with statin aspirin and beta lucho. Patient came today for cardiovasc ular follow up no complaint. continue medical treatment and follow up. Essential hypertension 80619759 I10 Controlled continue medication . Dyslipidemia 679615921 E 78.5 On statin follow up fasting lipid profile. Type 2 sarika betes mellitus without complication 789147501 E11.9 On metformin and glipizide follow up hemoglobin A1c. Ex-smoker 7065016 Z87.89 1 Quit smoking more than 20 years ago. Obesity 854282848 E66.9 BMI 32. Recommend weight loss and sleep apnea evaluation . Health Concerns Section Related Observation LastModified by Organization Detai ls LastModified Time None Recorded Concern Status LastModified by Organization Details LastModified Time None Recorded Advance Directives Directive None Recorded Payers Insurance Date Sequence Insurance Name Policy Number Policy Mejia Covered Member ID Mejia Member ID Guarantor Name 05/01/2024 1 [place] (MEDICARE REPLACEMENT HMO) [id number] Anne Farrell [id number] Anne Farrell 07/26/2024 1 [id number] Anne Karli Farrell [id number] Anne Farrell Notes Date Note Type Note Provider Name and Address Organization Details Recorded Time 12/26/2023 text/html 73-year-old man with past medical history significant for hypertension diabetes dyslipidemia ex-smoker history of coronary artery disease with history of balloon angioplasty done in 1995 at [facility] as per the patient with known stents.Patient came today to establish follow up with the [facility]. He has been doing well he is physically active denied chest pain but he has mild chest tightness sometimes. No shortness of breath at rest or mild exertion. No orthopnea PND or leg swelling. No cough wheeze sputum or hemoptysis no fever no chills no bleeding anywhere.His EKGs done today results were reviewed with the patient. EKG 12/26/2023 Normal sinus rhythm, RBBB, inferior infarct age undetermined. abnormal EKG. Michael Patrick MD [address] [place] [address], [id number] [place] [address] & [place] 12/26/2023 10:12:51 01/19/2024 text/html 73-year-old man with past medical history significant for hypertension diabetes dyslipidemia ex-smoker history of coronary artery disease with history of balloon angioplasty done in 1995 at [facility] as per the patient with known stents.Patient has been doing well he is physically active denied chest pain but he has mild chest tightness sometimes. No shortness of breath at rest or mild exertion. No orthopnea PND or leg swelling. No cough wheeze sputum or hemoptysis no fever no chills no bleeding anywhere.Patient came today to follow up on the results of the echocardiogram and blood work. His echocardiogram was done 01/05/2024 showed normal systolic function with mild mitral regurgitation results were discussed with the patient counseling was done. He is still asymptomatic. Continue medical treatment. I also discussed with the patient the results of the blood work that was done 12/26/2023 including CBC complete metabolic panel A1c lipid profile. EKG 12/26/2023 Normal sinus rhythm, RBBB, inferior infarct age undetermined. abnormal EKG. Echocardiogram: 4Conclusion s:1. Normal LV size.2. Normal left ventricular dimension.3. Normal left ventricular systolic function.4. Estimated LV ejection fraction 55-60%.5. There is borderline concentric left ventricle hypertrophy.6. Mild mitral valve regurgitation. Michael Patrick MD [address] [facility], [place], [address], [place] - [facility] - [place] & [place] 01/19/2024 14:57:41 07/20/2024 text/html 74-year-old man with past medical history significant for hypertension diabetes dyslipidemia ex-smoker history of coronary artery disease with history of balloon angioplasty done in 1995 at [facility] as per the patient with known stents. Patient came today for follow up. he has been doing well he is physically active denied chest pain. No shortness of breath at rest or mild exertion. No orthopnea PND or leg swelling. No cough wheeze sputum or hemoptysis no fever no chills no bleeding anywhere. Patient recently had blood work done at his PMD office, will call for results. EKG 12/26/2023 Normal sinus rhythm, RBBB, inferior infarct age undetermined. abnormal EKG. Echocardiogram: . Normal LV size.2. Normal left ventricular dimension.3. Normal left ventricular systolic function.4. Estimated LV ejection fraction 55-60%.5. There is borderline concentric left ventricle hypertrophy.6. Mild mitral valve regurgitation. Michael Patrick MD [address] [facility], [place], [address], [place] - [facility] - [place] & [place] 07/26/2024 09:38:49
== END 2025-03-25 23:59 | disposition home or self-care (01) ==
PROVIDERS: PCP Family Medicine; Visit Provider Nurse Practitioner
DX: M99.71 Connective tissue and disc stenosis of intervertebral foramina of cervical region (principal); M46.92 Unspecified inflammatory spondylopathy, cervical region
CPT/HCPCS: 72141